=== PATIENT | male | born 1935 | race Caucasian/White ===

== ENCOUNTER → 2017-02-15 | Outpatient (CLI) | payer MEDICARE ==
[~2017-02-15] MED LIST: CALC600T PO; CARV25TA PO; CYAN100053 IM; EZET10TA5 PO; GABA300C PO; LVT.1T PO; NF-VAL40T PO; NTR.4SL SL; OMEG1CAP51 PO; [UNRECOGNIZED DRUG - OTHER] PO
--- NOTE | 2017-02-15 13:36 | Diagnostic Imaging Report ---
PROCEDURE: CT chest without contrast. TECHNIQUE: Multiple contiguous axial images were obtained through the chest without the use of intravenous contrast. INDICATION: Cough. COMPARISON: 05/03/16. FINDINGS: There is beam hardening artifact related to a pacemaker in the anterior left chest wall with cardiac leads seen. The heart size is moderately enlarged. No pericardial effusion. There is no pleural effusion. There is mild respiratory motion artifact seen. There is nonspecific groundglass opacity noted in the left lung base in the inferior lingula and lower aspect of the left lower lobe. This area, however, is affected with motion artifact and the findings could be exaggerated by motion. No solid consolidation is present. There are nodular densities noted in the superior segment of the right lower lobe measuring up to 7 mm in size near the upper aspect of the right major fissure. These appear similar to 05/03/2016 exam and could relate to scarring. No significant effusion. No bronchiectasis. No emphysema changes. The thoracic aorta is normal in caliber. There is no mediastinal mass or significantly enlarged lymph nodes. Prominent coronary artery calcifications are seen. Sections in the upper abdomen demonstrate calcified gallstones. The spleen is mildly enlarged at 13.7 cm in length. The osseous structures demonstrate mild right convexity scoliosis and degenerative changes in the mid thoracic spine. IMPRESSION: 1. There are groundglass opacities in the left lung base which may relate to atelectasis or possibly interstitial/atypical pneumonia. 2. Indeterminate nodules up to 7 mm in size seen along the upper aspect of the right major fissure. These are stable from 05/03/2016 exam. A followup study in 12 months is suggested to ensure further stability. 3. Cardiomegaly with prominent coronary artery calcifications. 4. Calcified gallstones. 5. Mild splenomegaly. Dictated by: Dictated on workstation # [id number]
== END ==
LOC: RAD 08:49
PROVIDERS: ATTEND Internal Medicine Cardiovascular Disease
DX: R91.8 Other nonspecific abnormal finding of lung field (principal); I25.10 Atherosclerotic heart disease of native coronary artery without angina pectoris; I51.7 Cardiomegaly; K80.20 Calculus of gallbladder without cholecystitis without obstruction; I50.22 Chronic systolic (congestive) heart failure
CPT/HCPCS: 71250

== ENCOUNTER → 2019-03-07 | Outpatient (CLI) | payer MEDICARE ==
[2019-03-07 11:43] LABS: BASOPHILS # (AUTO) 0.1 10^3/uL (0.0-0.1); BASOPHILS % (AUTO) 2 % (0-10); EOSINOPHILS # (AUTO) 0.1 10^3/uL (0.0-0.3); EOSINOPHILS % (AUTO) 3 % (0-10); HEMATOCRIT 41 % (40-54); HEMOGLOBIN 13.7 G/DL (13.3-17.7); LYMPHOCYTES # (AUTO) 0.5 X 10^3 (1.0-4.0); LYMPHOCYTES % (AUTO) 10 % (12-44); MEAN CORPUSCULAR HEMOGLOBIN 32 PG (25-34); MEAN CORPUSCULAR HGB CONC 34 G/DL (32-36); MEAN CORPUSCULAR VOLUME 94 FL (80-99); MEAN PLATELET VOLUME 9.3 FL (7.4-10.4); MONOCYTES # (AUTO) 0.8 X 10^3 (0.0-1.0); MONOCYTES % (AUTO) 15 % (0-12); NEUTROPHILS # (AUTO) 3.6 X 10^3 (1.8-7.8); NEUTROPHILS % (AUTO) 71 % (42-75); PLATELET COUNT 189 10^3/uL (130-400); WHITE BLOOD COUNT 5.1 10^3/uL (4.3-11.0)
[2019-03-07 12:05] LABS: ALANINE AMINOTRANSFERASE 19 U/L (0-55); ALBUMIN 3.8 GM/DL (3.2-4.5); ALKALINE PHOSPHATASE 94 U/L (40-136); BILIRUBIN,TOTAL 0.6 MG/DL (0.1-1.0); BUN/CREATININE RATIO 17; CALCIUM 9.1 MG/DL (8.5-10.1); CARBON DIOXIDE 24 MMOL/L (21-32); CHLORIDE 102 MMOL/L (98-107); GFR ESTIMATED > 60; GLUCOSE 102 MG/DL (70-105); POTASSIUM 4.1 MMOL/L (3.6-5.0); SODIUM 136 MMOL/L (135-145); TOTAL PROTEIN 6.5 GM/DL (6.4-8.2)
[2019-03-07 12:11] LABS: ERYTHROCYTE SEDIMENTATION RATE 6 MM/HR (0-30)
== END ==
LOC: CARD 11:21
PROVIDERS: ATTEND Internal Medicine
DX: M35.3 Polymyalgia rheumatica (principal); I25.10 Atherosclerotic heart disease of native coronary artery without angina pectoris
CPT/HCPCS: 36415; 80053; 83735; 83880; 85025; 85652; 93005

== ENCOUNTER → 2020-11-18 | Outpatient (CLI) | payer MEDICARE ==
--- NOTE | 2020-11-18 09:17 | Diagnostic Imaging Report ---
INDICATION: Long-term prednisone use, long-term steroid use, screening for osteoporosis. COMPARISON: None available FINDINGS: AP Spine L1-L4: [BMD (g/cm2): 0.928] [T-Score: -2.6] [Z-Score: -1.9] [BMD Previous: NA] [BMD % Change: NA] LT Hip Neck: [BMD (g/cm2): 0.578] [T-Score: -3.8] [Z-Score: -2.2] LT Hip Total: [BMD (g/cm2):0.589] [T-Score:-3.6] [Z-Score: -2.3] [BMD Previous: NA] [BMD % Change: NA] RT Hip Neck: [BMD (g/cm2):0.648] [T-Score:-3.2] [Z-Score:-1.6] RT Hip Total: [BMD (g/cm2):0.562] [T-score:-3.7] [Z-Score:-2.5] [BMD Previous:NA] [BMD % Change:NA] *Indicates significant change from prior examination based on 95% confidence level. World Health Organization criteria for BMD interpretation classify patients as Normal (T-score at or above -1.0), Osteopenic (T-score between -1.0 and -2.5) or Osteoporotic (T-score at or below -2.5). LIMITATIONS AND MODIFICATION: None. FRACTURE RISK (FRAX SCORE): The ten year probability of (%): Major Osteoporotic Fracture: [14.8] Hip Fracture: [7.5] IMPRESSION: 1. Osteoporosis. 2. Baseline examination. 3. See below National Osteoporosis Foundation guidelines on when to potentially initiate pharmacologic therapy. Based on the National Osteoporosis Foundation Guidelines, pharmacologic treatment should be initiated in any of the following, unless clinical conditions suggest otherwise: * Any patient with prior fragility fracture of the hip or vertebrae. A spine fracture indicates 5X risk for subsequent spine fracture and 2X risk for subsequent hip fracture. * Osteoporosis (T-score <-2.5). * Postmenopausal women and men age 50 and older with low bone mass/osteopenia (T-score between -1.0 and -2.5) by DXA and 10-year major osteoporotic fracture greater than 20% or a 10-year probability of hip fracture greater than 3%. These fracture risks are supplied above in the FRAX score, if applicable. * Clinician judgement and/or patient preferences may indicate treatment for people with 10-year fracture probabilities above or below these levels. Dictated by: Dictated on workstation # [id number]
== END ==
LOC: RAD 08:30
PROVIDERS: ATTEND Psychiatry & Neurology Neurology
DX: Z13.820 Encounter for screening for osteoporosis (principal); M81.0 Age-related osteoporosis without current pathological fracture; G62.9 Polyneuropathy, unspecified; Z79.52 Long term (current) use of systemic steroids
CPT/HCPCS: 77080

== ENCOUNTER → 2021-06-02 | Outpatient (CLI) | payer MEDICARE ==
[~2021-06-02] MED LIST changes: +RT-ALBUTEROL SULF 2.5 MG/3 ML PRE-MIX VIAL INH ONE
== END ==
LOC: RT 10:45
PROVIDERS: ATTEND Internal Medicine Pulmonary Disease
DX: R05.9 Cough, unspecified (principal)
CPT/HCPCS: 94060; 94726; 94729

== ENCOUNTER 2022-02-01 08:24 | Outpatient (RCR) | payer MEDICARE ==
[~2022-02-01 08:24] MED LIST changes: -RT-ALBUTEROL SULF 2.5 MG/3 ML PRE-MIX VIAL INH ONE
== END 2022-02-03 | disposition home or self-care (01) ==
PROVIDERS: ATTEND Psychiatry & Neurology Neurology
DX: R53.1 Weakness (principal); I11.9 Hypertensive heart disease without heart failure; Z95.810 Presence of automatic (implantable) cardiac defibrillator

== ENCOUNTER 2022-02-22 09:17 | Outpatient (RCR) | payer MEDICARE | END 2022-02-22 10:00 | disposition home or self-care (01) | PROVIDERS: ATTEND Psychiatry & Neurology Neurology | DX: R53.1 Weakness (principal); R26.89 Other abnormalities of gait and mobility; I11.9 Hypertensive heart disease without heart failure; Z95.810 Presence of automatic (implantable) cardiac defibrillator ==

== ENCOUNTER 2022-03-04 09:17 | Outpatient (RCR) | payer MEDICARE | END 2022-03-05 | disposition home or self-care (01) | PROVIDERS: ATTEND Anesthesiology Pain Medicine | DX: M25.511 Pain in right shoulder (principal); M25.512 Pain in left shoulder; G89.29 Other chronic pain ==

== ENCOUNTER 2022-03-31 10:58 | Outpatient (RCR) | payer MEDICARE | END 2022-04-05 | disposition home or self-care (01) | PROVIDERS: ATTEND Anesthesiology Pain Medicine | DX: M25.511 Pain in right shoulder (principal); M25.512 Pain in left shoulder; G89.29 Other chronic pain ==

== ENCOUNTER → 2022-04-01 | Outpatient (CLI) | payer MEDICARE ==
[~2022-04-01] MED LIST changes: +RT-ALBUTEROL SULF 2.5 MG/3 ML PRE-MIX VIAL INH ONE
== END ==
LOC: RT 10:20
PROVIDERS: ATTEND Internal Medicine Pulmonary Disease
DX: J43.1 Panlobular emphysema (principal); R91.8 Other nonspecific abnormal finding of lung field
CPT/HCPCS: 94060; 94621; 94726; 94729

== ENCOUNTER → 2022-04-01 | Outpatient (CLI) | payer MEDICARE ==
[~2022-04-01] MED LIST changes: -RT-ALBUTEROL SULF 2.5 MG/3 ML PRE-MIX VIAL INH ONE
--- NOTE | 2022-04-01 14:52 | Diagnostic Imaging Report ---
CT CHEST HIGH RES W/O TECHNIQUE: Unenhanced contiguous and noncontiguous axial CT imaging of the chest was performed per the high-resolution protocol. Supine and prone imaging was performed. Coronal MIP reformats were also created and submitted for interpretation. Automatic exposure controls were utilized to keep dose as low as reasonably achievable. INDICATION: Abnormal pulmonary function tests. COMPARISON: CT chest of 02/15/2017. FINDINGS: Lungs and airway: No traction bronchiectasis or honeycombing. There are scattered centrilobular micronodules in the upper lobes. Minimal fine reticular opacities in the lung bases which some persist on prone imaging indicative of mild pulmonary fibrosis. On expiratory imaging, there is no pathologic air trapping appreciated. Pleura: No pleural effusion or pneumothorax. Heart and mediastinum: The visualized thyroid is normal. No supraclavicular or axillary lymphadenopathy. No mediastinal or juxtaphrenic lymphadenopathy. No evidence of hilar lymphadenopathy, although evaluation is limited without IV contrast. Cardiomegaly without pericardial effusion. Severe coronary artery calcifications are present. Upper abdomen: Cholelithiasis. No features of acute cholecystitis. Musculoskeletal: No concerning osseous lesions in the thorax. IMPRESSION: 1. Very mild pulmonary fibrosis in the lung bases is likely senescent in etiology. This has not substantially changed since 2017. 2. No honeycombing. 3. Scattered centrilobular micronodules in the upper lobes may be sequelae of prior endobronchial infection. Dictated by: Dictated on workstation # [id number]
== END ==
LOC: RAD 10:21
PROVIDERS: ATTEND Internal Medicine Pulmonary Disease
DX: J84.10 Pulmonary fibrosis, unspecified (principal)
CPT/HCPCS: 71250

== ENCOUNTER → 2022-08-12 | Outpatient (CLI) | payer MEDICARE ==
--- NOTE | 2022-08-12 17:00 | Diagnostic Imaging Report ---
INDICATION: Weakness and instability. Pain and numbness. EXAMINATION: Left knee CT, 08/12/2022. All CT scans use one or more of the following dose optimizing techniques: automated exposure control, MA and/or KvP adjustment based on patient size and exam type or iterative reconstruction. FINDINGS: There is no fracture or dislocation. There is chondrocalcinosis in the medial and lateral joint compartments. Loose bodies also noted within the joint. Moderate patellofemoral narrowing and spurring present. There is atherosclerotic disease. There is a small joint effusion containing loose bodies. A small to moderate Manley cyst also contains loose bodies. IMPRESSION: Tricompartmental degenerative disease as detailed above including findings of chondrocalcinosis. No acute osseous abnormality. Dictated by: Dictated on workstation # [id number]
== END ==
LOC: RAD 07:29
PROVIDERS: ATTEND Internal Medicine Rheumatology
DX: M17.12 Unilateral primary osteoarthritis, left knee (principal); M23.52 Chronic instability of knee, left knee
CPT/HCPCS: 73700

== ENCOUNTER 2022-11-01 20:06 | Emergency (ER) | payer MEDICARE ==
[~2022-11-01] VITALS: Ht 177.8 cm; Wt 79.4 kg
[2022-11-01 20:10] VITALS: BP 131/83
--- NOTE | 2022-11-01 20:18 | ED Upper Extremity ---
General Chief Complaint: Trauma-Non Activation Stated Complaint: FALL/LEFT WRIST INJURY Nursing Triage Note: PT AMB TO RM 5 W REPORTS OF FALL D/T LOSS OF BALANCE APPROX 30-45 MINS AGO. PT C/O LEFT WRIST PAIN, A&OX4, DENIES LOC. Source: patient Exam Limitations: no limitations (TRICE OTTO) History of Present Illness Date Seen by Provider: November 01, 2022 Time Seen by Provider: 20:16 Initial Comments Patient is a 86-year-old male who presents ED with left wrist pain. Patient had a mechanical fall 35 minutes ago in the garden. States he was out in the garden working when he twist and turn lost his balance landing on extended out left hand. Reports pain and swelling to the left wrist. Rates pain 6 out of 10 with movement. Reports scraping his left elbow. He states he has thin skin which bleed easily. Denies of any blood thinners. Denies hitting his head, loss of conscious, chest pain, abdominal pain, vomiting, hip pain, lower extremity pain, neck or middle to lower back pain. Denies taking thing for pain. Refused something for pain on arrival (TRICE OTTO) Allergies and Home Medications Allergies Coded Allergies: Sulfa (Sulfonamide Antibiotics) (Verified Allergy, Severe, 11/01/22) aspirin (Unverified Allergy, Unknown, 11/18/20) Patient Home Medication List Home Medication List Reviewed: Yes (TRICE OTTO) Calcium Carbonate (Sudarshan-600) 1.5 G Tablet, 1.5 G PO DAILY, (Reported) Entered as Reported by: NOMI HUBER on 08/29/10 1022 Carvedilol (Carvedilol) 25 Mg Tablet, 1 EACH PO BID, (Reported) Entered as Reported by: NOMI HUBER on 08/29/10 1022 Cyanocobalamin (Cyanocobalamin) 1,000 Mcg/Ml Vial, 1 ML IM EVERY 2 WEEKS, (Reported) Entered as Reported by: NOMI HUBER on 08/29/10 1022 Ezetimibe (Zetia) 10 Mg Tablet, 10 MG PO DAILY@0900, (Reported) Entered as Reported by: NOMI HUBER on 08/29/10 1022 Gabapentin (Neurontin) 300 Mg Capsule, 1 EACH PO BID, (Reported) Entered as Reported by: NOMI HUBER on 08/29/10 102 Levothyroxine Sodium (Levothyroxine 100 Mcg Tab) 100 Mcg Tablet, 1 EACH PO DAILY, (Reported) Entered as Reported by: NOMI HUBER on 08/29/10 102 [place]-3 Fatty Acids/Fish Oil (Fish Oil 1,000 Mg Softgel) 1 Each Capsule, 1 EACH PO DAILY, (Reported) Entered as Reported by: NOMI HUBER on 08/29/10 102 Valsartan (Diovan) 40 Mg Tablet, 40 MG PO BID, (Reported) Entered as Reported by: NOMI HUBER on 08/29/10 102 [Ntr.4sl] , 0.4 MG SL PRN, (Reported) Entered as Reported by: NOMI HUBER on 08/29/101021 [Urithral] , PO DAILY, (Reported) Entered as Reported by: NOMI HUBER on 08/29/10 102 Review of Systems Constitutional: No chills, No diaphoresis EENTM: No ear pain, No blurred vision, No double vision Respiratory: No cough Cardiovascular: No chest pain Gastrointestinal: No abdominal pain, No diarrhea, No nausea, No vomiting Genitourinary: No decreased output, No discharge Musculoskeletal: No back pain; joint pain, joint swelling, muscle pain Skin: change in color (TRICE OTTO) All Other Systems Reviewed Negative Unless Noted: Yes (TRICE OTTO) Physical Exam Vital Signs Vital Signs - First Documented 11/01/22 20:10 Temp 36.9 Pulse 71 Resp 18 B/P (MAP) 131/83 (99) Pulse Ox 91 O2 Delivery Room Air (KIRK FERGUSON MD) Vital Signs Capillary Refill : Less Than 3 Seconds (TRICE OTTO) Height, Weight, BMI Height: '" Weight: lbs. oz. kg; 25.00 BMI Method: General Appearance: WD/WN, no apparent distress HEENT: PERRL/EOMI, normal ENT inspection, TMs normal, pharynx normal Neck: non-tender, full range of motion, supple Cardiovascular: regular rate, rhythm, no edema, no gallop, no JVD Respiratory: chest non-tender, lungs clear, normal breath sounds, no respiratory distress, no accessory muscle use Gastrointestinal: normal bowel sounds, non tender, soft, no organomegaly Back: no CVA tenderness Shoulder: normal inspection, non-tender, no evidence of injury Elbow/Forearm: normal inspection, non-tender, normal ROM, Left Wrist: Yes soft tissue tenderness (Left distal radius ulna tenderness. Normal active range of motion. Swelling noted. Neurovascular intact), Yes swelling Hand: Left, soft tissue tenderness (Left proximal dorsal wrist tenderness.), stiffness Neurologic/Psychiatric: work study student II-XII nml as tested, no motor/sensory deficits, alert, normal mood/affect, oriented x 3 (TRICE OTTO) Procedures/Interventions Splinting and Joint Reduction : Pre-Proc Neuro Vasc Exam: normal Post-Proc Neuro Vasc Exam: normal Progress Sugar-tong left wrist Ortho-Glass. Neurovascular intact pre and post splint. No evidence compartment syndrome (RTICE OTTO) Progress/Results/Core Measures Results/Orders Vital Signs/I&O 11/01/22 20:10 Temp 36.9 Pulse 71 Resp 18 B/P (MAP) 131/83 (99) Pulse Ox 91 O2 Delivery Room Air (KIRK FERGUSON MD) Blood Pressure Mean: 99 Departure Communication (PCP) Patient with mechanical fall. Landed on extended out left wrist. Denies hitting his head or loss of consciousness. Pain with movement. Distal radius tenderness. Normal visitor services assistant strength. Neurovascular intact. No obvious bone deformity. Skin abrasions noted to the left elbow without any tenderness. X- ray shows There is mildly comminuted fracture involving the distal radial metaphyseal region with extension to the articular surface. possible injury to the distal radioulnar joint ligamentous structures. No evidence compartment syndrome. Due to the location of the fracture patient was placed in a sugar- tong splint. Patient does use a cane. Patient is right-handed. Patient is able to ambulate. Orthopedic follow-up in 7 to 10 days for further evaluation. If increasing pain, skin color changes return back to ED (TRICE OTTO) Impression Primary Impression: Wrist fracture Disposition: 01 HOME, SELF-CARE Condition: Stable Departure-Patient Inst. Decision time for Depature: 20:41 (TRICE OTTO) Referrals: CATRACHITA CORREA MD (PCP/Family) Primary Care Physician ELLIS HERZOG MD, MICHAEL P MD Patient Instructions: Wrist Fracture (DC) Add. Discharge Instructions: Keep wrist in splint. Orthopedic follow-up in 7 days. Pain medication for pain. All discharge instructions reviewed with patient and/or family. Voiced understanding. ATTENDING PHYSICIAN NOTE: I was physically present as attending physician in the emergency department during the care of this patient, but I was not directly involved in the decision making or delivery of care for this patient. (KIRK FERGUSON MD) TRICE OTTO November 01, 2022 20:18 KIRK FERGUSON MD November 01, 2022 21:21
--- NOTE | 2022-11-01 20:48 | Diagnostic Imaging Report ---
INDICATION: Fall with left wrist injury and pain AP, oblique and lateral views of left wrist are obtained. There is mildly comminuted fracture involving the distal radial metaphyseal region with extension to the articular surface. No significant articular surface offset is identified. There is mild widening of the distal radioulnar joint. Chondrocalcinosis at a triangular fibrocartilaginous complex is noted. There is also advanced degenerative change at the left thumb base. IMPRESSION: Mildly displaced comminuted intra-arterial fracture of distal radius without significant articular surface offset. There is possible injury to the distal radioulnar joint ligamentous structures, as well. Dictated by: Dictated on workstation # [id number]
== END 2022-11-01 21:05 | disposition home or self-care (01) ==
LOC: EDUNIT# 20:06 → ER 20:08
DX: S52.592A Other fractures of lower end of left radius, initial encounter for closed fracture (principal); S50.312A Abrasion of left elbow, initial encounter; W18.30XA Fall on same level, unspecified, initial encounter; Y93.H2 Activity, gardening and landscaping; Y92.007 Garden or yard of unspecified non-institutional (private) residence as the place of occurrence of the external cause
CPT/HCPCS: 29125; 73110

== ENCOUNTER → 2022-11-03 | Outpatient (CLI) | payer MEDICARE | LOC: ORTHO 14:04 | PROVIDERS: ATTEND Orthopaedic Surgery | DX: S52.502A Unspecified fracture of the lower end of left radius, initial encounter for closed fracture (principal); X58.XXXA Exposure to other specified factors, initial encounter | CPT/HCPCS: 99203 ==

== ENCOUNTER → 2022-11-10 | Outpatient (CLI) | payer MEDICARE ==
--- NOTE | 2022-11-10 12:57 | Diagnostic Imaging Report ---
Indication: Follow-up fracture. COMPARISON: 11/01/2022 FINDINGS: Multiple radiographic views left wrist were obtained and again show oblique oriented fracture of the distal radius. There is no significant displacement of fracture fragments. No new acute osseous abnormality is seen. Radiocarpal joint space is maintained. No unexpected radiopaque foreign bodies are seen. IMPRESSION: 1. Redemonstration stable nonacute fracture of the distal left radius. Dictated by: Dictated on workstation # [id number]
== END ==
LOC: ORTHO 10:12
PROVIDERS: ATTEND Orthopaedic Surgery
DX: S52.572D Other intraarticular fracture of lower end of left radius, subsequent encounter for closed fracture with routine healing (principal); X58.XXXD Exposure to other specified factors, subsequent encounter
CPT/HCPCS: 73110; G0463; 99213

== ENCOUNTER → 2022-11-24 | Outpatient (CLI) | payer MEDICARE ==
--- NOTE | 2022-11-24 09:48 | Diagnostic Imaging Report ---
INDICATION: Fracture follow-up. Comparison 11/10/2022. FINDINGS: Distal radial fracture with intra-articular extension showed no articular surface offset is in stable alignment. Fracture lines remain well visualized and there is no substantial change from prior. No new injury apparent. No acute appearing abnormality identified. IMPRESSION: No significant change in comminuted intra-articular distal radial fractures. Dictated by: Dictated on workstation # [id number]
== END ==
LOC: ORTHO 08:51
PROVIDERS: ATTEND Orthopaedic Surgery
DX: S52.572D Other intraarticular fracture of lower end of left radius, subsequent encounter for closed fracture with routine healing (principal); X58.XXXD Exposure to other specified factors, subsequent encounter
CPT/HCPCS: 73110; G0463; 99213

== ENCOUNTER → 2022-12-08 | Outpatient (CLI) | payer MEDICARE | LOC: ORTHO 10:45 | PROVIDERS: ATTEND Orthopaedic Surgery | DX: S52.502D Unspecified fracture of the lower end of left radius, subsequent encounter for closed fracture with routine healing (principal); X58.XXXD Exposure to other specified factors, subsequent encounter | CPT/HCPCS: 99213 ==

== ENCOUNTER → 2023-01-25 | Outpatient (CLI) | payer MEDICARE ==
--- NOTE | 2023-01-25 08:56 | Diagnostic Imaging Report ---
EXAMINATION: Left wrist 3 or more views HISTORY: Fracture COMPARISON: 12/23/2022 FINDINGS: There is a left distal radial fracture. There is sclerosis of the fracture margins with a small amount of bridging bone along the medial aspect of the fracture line. This has slightly increased from prior exam. Alignment is unchanged. No new fracture is seen. IMPRESSION: 1. Healing left distal radial fracture. Dictated by: Dictated on workstation # [id number]
== END ==
LOC: ORTHO 08:22
PROVIDERS: ATTEND Orthopaedic Surgery
DX: S52.572D Other intraarticular fracture of lower end of left radius, subsequent encounter for closed fracture with routine healing (principal); X58.XXXD Exposure to other specified factors, subsequent encounter
CPT/HCPCS: 73110; 99213

== ENCOUNTER 2023-03-25 11:15 | Outpatient (RCR) | payer MEDICARE | END 2023-03-25 11:56 | disposition home or self-care (01) | PROVIDERS: ATTEND Orthopaedic Surgery | DX: M85.9 Disorder of bone density and structure, unspecified (principal); W19.XXXD Unspecified fall, subsequent encounter ==